=== PATIENT | female | born 1995 | race Caucasian/White ===

== ENCOUNTER → 2017-12-10 | Outpatient (CLI) | payer BC ==
--- NOTE | 2017-12-10 16:25 | US ---
EXAMINATION TYPE: US soft tissue head/neck DATE OF EXAM: 12/10/2017 COMPARISON: NONE CLINICAL HISTORY: R22.1 Localized Swelling and Mass of Neck; mass is located lower posterior neck, in creasing in size and sensitivity with pressure and present x years. At patient's palpable a hypoechoic, complex, oval mass is noted with increased posterior enhancement and size of mass = 2.3 x 3.3 x 1.3cm. The mass is noted superficial to the deeper muscles. IMPRESSION: Suspicious abnormal solid lesion. Advise contrast-enhanced neck CT follow-up to further evaluate and characterize.
== END | disposition home or self-care (01) ==
LOC: RADUSWWP 15:56
PROVIDERS: ATTEND Family Medicine
DX: R22.1 Localized swelling, mass and lump, neck (principal)
CPT/HCPCS: 76536

== ENCOUNTER → 2021-07-21 | Outpatient (CLI) | payer BC, OTHER ==
--- NOTE | 2021-07-22 04:50 | MR ---
EXAMINATION TYPE: MR pituitary wo/w con DATE OF EXAM: 07/21/2021 COMPARISON: None HISTORY: Increased prolactin level. CONTRAST: Standard multiplanar, multisequence MRI departmental protocol images were obtained without contrast a nd with 8 mL intravenous Gadavist gadolinium contrast. Optic chiasm appears normal. Corpus callosum appears normal. Pituitary stalk is in the midline. There is 4 mm area of decreased enhancement in the left side of the pituitary gland compared to the right. There is no significant mass effect. Floor of the sella turcica is symmetric. IMPRESSION: There is slight decreased enhancement on the left side of the pituitary gland measuring 4 mm without mass effect. This is equivocal for the presence of a microadenoma.
== END | disposition home or self-care (01) ==
LOC: RADMRIMAIN 08:10
PROVIDERS: ATTEND Family Medicine
DX: R89.1 Abnormal level of hormones in specimens from other organs, systems and tissues (principal)
CPT/HCPCS: 70553; A9585

== ENCOUNTER 2023-10-26 07:23 | Day surgery (SDC) | payer OTHER ==
[~2023-10-26 07:23] MED LIST: Pre Op ABX Message 1 EACH MISC MISCELLANE ONE; SCOPOLAMINE 1 MG/72 HR PATCH TRANSDERM ONE
[2023-10-26] MEDS: LACTATED RINGERS 1,000 ML IV SCH (08:19)
[2023-10-26] MEDS: DEXAMETHASONE SOD PHOSPHATE 4 MG/ML 1 ML VIAL IV ONE (08:20)
[2023-10-26] MEDS: ONDANSETRON 4 MG/2 ML VIAL IVP ONE (08:20)
[2023-10-26 08:23] LABS: Basophils # (A) 0.1 k/uL (0-0.2); Basophils % (A) 1 %; Eosinophils # (A) 0.1 k/uL (0-0.7); Eosinophils % (A) 2 %; HCT 41.8 % (34.0-46.0); HGB 14.3 gm/dL (11.4-16.0); Lymphocytes # (A) 1.9 k/uL (1.0-4.8); Lymphocytes % (A) 31 %; MCH 31.6 pg (25.0-35.0); MCHC 34.1 g/dL (31.0-37.0); MCV 92.7 fL (80.0-100.0); Mean Platelet Volume 7.9; Monocytes # (A) 0.4 k/uL (0-1.0); Monocytes % (A) 6 %; Neutrophils # (A) 3.5 k/uL (1.3-7.7); Neutrophils % (A) 57 %; Platelet Count 228 k/uL (150-450); RBC 4.51 m/uL (3.80-5.40); RDW 12.1 % (11.5-15.5); WBC 6.1 k/uL (3.8-10.6)
[2023-10-26] MEDS: MIDAZOLAM 2 MG/2 ML VIAL IV PRN (08:31)
[2023-10-26] MEDS: fentaNYL (PF) 50 MCG/ML 2 ML AMP IVP ONE (08:35)
--- NOTE | 2023-10-26 08:56 | P.ANPRN ---
Procedure Note - Anesthesia - Nerve Block Performed Left Popliteal Single Time Out Performed: Yes Date of Procedure: 10/26/23 Procedure Start Time: 08:30 Procedure Stop Time: 08:35 Location of Patient: PreOp Indication: Acute Post-Operative Pain, Analgesia, Requested by Surgeon Sedation Type: Sedate with meaningful contact maintained Preparation: Sterile Prep Position: Right Lateral Catheter: None Needle Types: Pajunk Needle Gauge: 21 Ultrasound used to visualize needle placement: Yes Ultrasound used to observe medication spread: Yes Injectate: 0.5% Ropivacaine (see comment for volume) (Ropiv 20ml+decadron 4mg) Blood Aspirated: No Pain Paresthesia on Injection Noted: No Resistance on Injection: Normal Image Stored and Saved: Yes Events: Uneventful and Well Tolerated
--- NOTE | 2023-10-26 08:58 | P.ANPRN ---
Procedure Note - Anesthesia - Nerve Block Performed Left Adductor Canal Single Time Out Performed: Yes Date of Procedure: 10/26/23 Procedure Start Time: 08:36 Procedure Stop Time: 08:41 Location of Patient: PreOp Indication: Acute Post-Operative Pain, Analgesia, Requested by Surgeon Sedation Type: Sedate with meaningful contact maintained Preparation: Sterile Prep Position: Supine Catheter: None Needle Types: Pajunk Needle Gauge: 21 Ultrasound used to visualize needle placement: Yes Ultrasound used to observe medication spread: Yes Injectate: 0.5% Ropivacaine (see comment for volume) (Ropiv 15ml+decadron 4mg) Blood Aspirated: No Pain Paresthesia on Injection Noted: No Resistance on Injection: Normal Image Stored and Saved: Yes Events: Uneventful and Well Tolerated
[2023-10-26] MEDS ORDERED: PROPOFOL 10 MG/ML 20 ML VIAL IV ONE (09:06)
[2023-10-26] MEDS ORDERED: DEXAMETHASONE SOD PHOSPHATE 4 MG/ML 1 ML VIAL ONE (09:06)
[2023-10-26] MEDS ORDERED: ROPIVACAINE 5 MG/ML 30 ML VIAL ONE (09:06)
[2023-10-26] MEDS ORDERED: MIDAZOLAM 2 MG/2 ML VIAL ONE (09:06)
[2023-10-26] MEDS ORDERED: LIDOCAINE 1% INJ 10MG/ML (20 ML MDV) ONE (09:06)
[2023-10-26] MEDS: ceFAZolin 1,000 MG in SODIUM CHLORIDE 0.9% 1,000 ML IRRIGATION ONE (09:10)
[2023-10-26] MEDS: LACTATED RINGERS 1,000 ML IV ONE (10:14)
--- NOTE | 2023-10-26 10:18 | P.OP ---
Date of Procedure: 10/26/23 Preoperative Diagnosis: Hallux valgus left foot Postoperative Diagnosis: Same Procedure(s) Performed: Bunionectomy by first metatarsal osteotomy left foot Implants: Arthrex MIS bunion screws 2 Anesthesia: CLARA Surgeon: Kaushik Will Estimated Blood Loss (ml): 1 Description of Procedure: Prior to the patient being brought to the operative room, anesthesia administered nerve block and left lower extremity. The patient was then brought into the operating room and placed on table supine position. Timeout was taken to confirm correct patient identifiers, correct laterality of surgery, and correct procedure. Once all staff in the room were in agreement with the timeout, the patient was induced and placed under general anesthesia a well- padded tourniquet was placed on the thigh of the operative leg. The leg was then prepped and draped in usual manner. The leg was exsanguinated, the knee flexed, and the tourniquet inflated to 250 mmHg. Under fluoroscopic visualization, metallic wires were used to identify anatomic landmarks on the foot. This included the first tarsometatarsal joint, the first metatarsal phalangeal joint, as well as the midline of the first metatarsal shaft. A marker was used to identify these on the skin. Under direct fluoroscopic visualization an initial guidewire was placed at the base of the first metatarsal along the medial aspect. It was then advanced distally and laterally until it penetrated the lateral cortex at the distal one third. Fluoroscopy the was used to make sure that the wire showed correct alignment both on AP and lateral views. Once that was established, a small stab incision was made over the skin at the medial aspect of the first metatarsal neck. An elevator was used to remove the periosteum dorsally. A Etta bur was inserted on the medial side of the first metatarsal, this was located approximately 20 mm from the first metatarsal phalangeal joint. The bur was advanced until it breach the lateral cortex and then with a rotation movement, the bur was used to cut through the first metatarsal dorsally and plantarly. Also the foot position was such that it was a straight dorsal to plantar cut. Once completed a hemostat was inserted into the medullary canal and used to shift the capital fragment laterally. The hemostat was removed and the correction device was inserted into the medullary canal. Once it was aligned, a K wire was placed through device and the metatarsal head to secure its placement.. Then the correction device was turned to laterally displace the metatarsal head to correct the intermetatarsal angle. Once sufficient correction was obtained, the initial guidewire was advanced to capture the first metatarsal head towards the lateral aspect. A parallel guide was placed over the initial wire and then the second wire was then inserted through the guide and advanced through the first metatarsal into the metatarsal head. Fluoroscopy was used to confirm the proper placement of both wires, that they were parallel to the first metatarsal axis and were also at the midline. The more proximal wire was then advanced to the plantar aspect of the foot and then clamped with a hemostat. Small stab incision was made to the skin and then really was performed over the proximal wire into the first metatarsal head. Minimally invasive bunionectomy screw was then inserted over the guidewire and advanced until there was full purchase of the threads and that the bevel was parallel to the medial cortex of the first metatarsal. A second wire was then drilled and another MIS mini and the screw was inserted over the wire and advanced until a purchase the medial cortex of the first metatarsal on the bevel was also parallel. Final fluoroscopic imaging showed proper placement of both screws. There was maintained correction of the intermetatarsal angle. Both wires were then removed. A bone reduction bur was inserted near the first metatarsal osteotomy and that was used to reduce the medial shelf of the first metatarsal created by the shifting of the capital fragment. Final fluoroscopic imaging showed full correction of the deformity. All hardware was properly aligned. The wounds were thoroughly irrigated with antibiotic saline. Skin closure was done with 3- 0 nylon. A linear gauze and a dry sterile dressing applied to left foot. The patient tolerated above procedure and anesthesia well which recovery with vital signs stable.
[2023-10-26 10:31] VITALS: TEMP 96.8
[2023-10-26] MEDS: fentaNYL (PF) 50 MCG/ML 2 ML AMP IV PRN (10:34)
[2023-10-26] MEDS: fentaNYL (PF) 50 MCG/1 ML VIAL IVP ONE (10:43)
[2023-10-26] MEDS ORDERED: HYDROcodone/APAP 5-325MG 1 EACH TAB ONE (10:59)
[2023-10-26] MEDS: HYDROcodone/APAP 5-325MG 1 EACH TAB PO ONE (11:00)
[2023-10-26 11:54] VITALS: BP 125/77; PULSE 61; RESP 18
== END 2023-10-26 12:12 | disposition home or self-care (01) ==
LOC: OR 07:23
PROVIDERS: ATTEND Podiatrist
DX: M20.12 Hallux valgus (acquired), left foot (principal); G89.18 Other acute postprocedural pain; F10.90 Alcohol use, unspecified, uncomplicated; F17.290 Nicotine dependence, other tobacco product, uncomplicated; F31.9 Bipolar disorder, unspecified; Z79.899 Other long term (current) drug therapy; Z88.0 Allergy status to penicillin
CPT/HCPCS: 64447; 81025; 64445; 85025; 28296; C1713; J2250; J1100; J0690 ×2; J2405; J2001; J3010 ×2; J2795; J2704